=== PATIENT | female | born 1980 | race American Indian/Alaskan Native ===

== ENCOUNTER 2017-03-19 22:48 | Emergency (ER) | payer OTHER ==
[2017-03-19 23:30] LABS: Basophils % (Auto) 0.3 % (0.0-1.8); Eosinophils # (Auto) 0.1 K/mm3 (0.0-0.4); Eosinophils % (Auto) 0.9 % (0.0-4.3); Hematocrit 41.6 % (30.3-42.9); Hemoglobin 14.2 gm/dl (10.1-14.3); Lymphocytes # (Auto) 3.6 K/mm3 (1.2-5.4); Lymphocytes % (Auto) 37.5 % (13.4-35.0); Mean Corpuscular HGB Conc 34 % (30-34); Mean Corpuscular Hemoglobin 30 pg (28-32); Mean Corpuscular Volume 88 fl (79-97); Monocytes % (Auto) 10.3 % (0.0-7.3); Platelet Count 347 K/mm3 (140-440); Red Blood Count 4.74 M/mm3 (3.65-5.03)
--- NOTE | 2017-03-19 23:42 | XRay Report ---
FINAL REPORT PROCEDURE: XR CHEST ROUTINE 2V TECHNIQUE: PA and lateral chest radiographs were obtained. CPT 32575 HISTORY: Shortness of breath COMPARISON: No prior studies are available for comparison. FINDINGS: Heart: Normal. Mediastinum/Vessels: Normal. Lungs/Pleural space: Normal. Bony thorax: No acute osseous abnormality. Other: IMPRESSION: Normal examination.
[2017-03-19 23:48] LABS: BUN/Creatinine Ratio 16; Blood Urea Nitrogen 8 mg/dL (7-17); Hemolysis Index 6
[2017-03-20] MEDS ORDERED: NACL 0.9% 1000 ML 1,000 ML IV ONE (06:41)
--- NOTE | 2017-03-20 06:53 | Emergency Department Report ---
HPI - General Chief Complaint: Dyspnea/Respdistress Time Seen by Provider: 03/20/17 06:17 - HPI HPI: This is a 36 year-old female presents to the emergency department with complaint of a one-week history of some intermittent chest discomfort. She denies any shortness of breath, nausea, vomiting or fever. She does complain of some increased fatigue over this time. She did not take anything for her symptoms from presentation. She has a past medical history of diabetes on both pills and insulin, hypertension. She says that there is some family history and her father of an heart attack in his 50s. No recent travel or sick contacts at home. She has a primary care physician, Dr. Merlos, but has not seen them regarding her symptoms. ED Past Medical Hx - Past Medical History Hx Hypertension: Yes Hx Diabetes: Yes - Surgical History Past Surgical History?: No - Social History Smoking Status: Never Smoker Substance Use Type: None - Medications Home Medications: Home Medications Medication Instructions Recorded Confirmed Last Taken Type ALBUTEROL Inhaler [ProAir HFA 2 puff IH QID PRN #1 inhalation 03/20/17 Unknown Rx Inhaler] Cetirizine HCl [ZyrTEC] 10 mg PO QDAY #10 capsule 03/20/17 Unknown Rx ED Review of Systems ROS: Stated complaint: COUGH WITH CHEST PAIN Other details as noted in HPI Comment: All other systems reviewed and negative Constitutional: denies: chills, fever Eyes: denies: eye pain, eye discharge, vision change ENT: throat pain. denies: ear pain Respiratory: denies: cough, shortness of breath, wheezing Cardiovascular: chest pain. denies: palpitations Gastrointestinal: denies: abdominal pain, nausea, diarrhea Genitourinary: denies: urgency, dysuria, discharge Musculoskeletal: denies: back pain, joint swelling, arthralgia Skin: denies: rash, lesions Neurological: denies: headache, weakness, paresthesias Physical Exam - Physical Exam Vital Signs: Vital Signs 03/19/17 03/20/17 03/20/17 22:59 01:56 02:00 Temperature 98.7 F Pulse Rate 114 H 109 H 108 H Respiratory 16 12 26 H Rate Blood Pressure 154/93 Blood Pressure [Left] O2 Sat by Pulse 98 97 Oximetry 03/20/17 03/20/17 03/20/17 02:07 02:16 02:30 Temperature 98.5 F Pulse Rate 106 H 100 H 101 H Respiratory 20 41 H 40 H Rate Blood Pressure 165/100 165/100 Blood Pressure 165/100 [Left] O2 Sat by Pulse 97 96 96 Oximetry 03/20/17 03/20/17 03/20/17 02:46 03:00 03:16 Temperature Pulse Rate 107 H 103 H 104 H Respiratory 35 H 36 H 36 H Rate Blood Pressure 165/100 165/100 162/92 Blood Pressure [Left] O2 Sat by Pulse 97 96 96 Oximetry 03/20/17 03/20/17 03/20/17 03:30 03:46 04:00 Temperature Pulse Rate 106 H 111 H 106 H Respiratory 39 H 35 H 37 H Rate Blood Pressure 162/92 162/92 162/92 Blood Pressure [Left] O2 Sat by Pulse 96 97 95 Oximetry 03/20/17 03/20/17 03/20/17 04:16 04:44 04:46 Temperature Pulse Rate 105 H 112 H 112 H Respiratory 35 H 19 26 H Rate Blood Pressure 143/89 162/92 Blood Pressure [Left] O2 Sat by Pulse 97 98 99 Oximetry 03/20/17 03/20/17 03/20/17 05:00 05:16 05:30 Temperature Pulse Rate 113 H 109 H 110 H Respiratory 35 H 18 37 H Rate Blood Pressure 113/83 113/83 113/83 Blood Pressure [Left] O2 Sat by Pulse 99 97 98 Oximetry 03/20/17 03/20/17 03/20/17 05:46 06:00 06:16 Temperature Pulse Rate 108 H 103 H 103 H Respiratory 36 H 36 H 30 H Rate Blood Pressure 113/83 120/81 120/81 Blood Pressure [Left] O2 Sat by Pulse 98 97 96 Oximetry 03/20/17 06:30 Temperature Pulse Rate 101 H Respiratory 33 H Rate Blood Pressure 120/81 Blood Pressure [Left] O2 Sat by Pulse 95 Oximetry Physical Exam: GENERAL: The patient is well-developed well-nourished. HENT: Normocephalic. Atraumatic. Patient has moist mucous membranes. Oropharynx is clear without tonsillar hypertrophy, erythema or exudates. EYES: Extraocular motions are intact. Pupils equal reactive to light bilaterally. NECK: Supple. Skin is warm and dry. CHEST/LUNGS: Clear to auscultation. There is no respiratory distress noted. HEART/CARDIOVASCULAR: Regular. There is mild tachycardia. There is no murmur. ABDOMEN: Abdomen is soft, nontender. Patient has normal bowel sounds. Morbidly obese habitus. SKIN: Skin is warm and dry. NEURO: The patient is awake, alert, and oriented. The patient is cooperative. The patient has no focal neurologic deficits. The patient has normal speech. MUSCULOSKELETAL: There is no tenderness or deformity. There is no limitation range of motion. There is no evidence of acute injury. ED Course Vital Signs 03/19/17 03/20/17 03/20/17 22:59 01:56 02:00 Temperature 98.7 F Pulse Rate 114 H 109 H 108 H Respiratory 16 12 26 H Rate Blood Pressure 154/93 Blood Pressure [Left] O2 Sat by Pulse 98 97 Oximetry 03/20/17 03/20/17 03/20/17 02:07 02:16 02:30 Temperature 98.5 F Pulse Rate 106 H 100 H 101 H Respiratory 20 41 H 40 H Rate Blood Pressure 165/100 165/100 Blood Pressure 165/100 [Left] O2 Sat by Pulse 97 96 96 Oximetry 03/20/17 03/20/17 03/20/17 02:46 03:00 03:16 Temperature Pulse Rate 107 H 103 H 104 H Respiratory 35 H 36 H 36 H Rate Blood Pressure 165/100 165/100 162/92 Blood Pressure [Left] O2 Sat by Pulse 97 96 96 Oximetry 03/20/17 03/20/17 03/20/17 03:30 03:46 04:00 Temperature Pulse Rate 106 H 111 H 106 H Respiratory 39 H 35 H 37 H Rate Blood Pressure 162/92 162/92 162/92 Blood Pressure [Left] O2 Sat by Pulse 96 97 95 Oximetry 03/20/17 03/20/17 03/20/17 04:16 04:44 04:46 Temperature Pulse Rate 105 H 112 H 112 H Respiratory 35 H 19 26 H Rate Blood Pressure 143/89 162/92 Blood Pressure [Left] O2 Sat by Pulse 97 98 99 Oximetry 03/20/17 03/20/17 03/20/17 05:00 05:16 05:30 Temperature Pulse Rate 113 H 109 H 110 H Respiratory 35 H 18 37 H Rate Blood Pressure 113/83 113/83 113/83 Blood Pressure [Left] O2 Sat by Pulse 99 97 98 Oximetry 03/20/17 03/20/17 03/20/17 05:46 06:00 06:16 Temperature Pulse Rate 108 H 103 H 103 H Respiratory 36 H 36 H 30 H Rate Blood Pressure 113/83 120/81 120/81 Blood Pressure [Left] O2 Sat by Pulse 98 97 96 Oximetry 03/20/17 06:30 Temperature Pulse Rate 101 H Respiratory 33 H Rate Blood Pressure 120/81 Blood Pressure [Left] O2 Sat by Pulse 95 Oximetry - Consultations Consultation #1: 03/20/17 10:30 HEART Pathway for Early Discharge in Acute Chest Pain from [employer] on 2017 All calculations should be rechecked by clinician prior to use RESULT SUMMARY: 2 points HEART Pathway Score Low risk 0.91.7% 30-day MACE Repeat troponin at 3 hours and if negative, discharge home with outpatient follow-up. INPUTS: History > 0 = Slightly suspicious EKG > 0 = Normal Age > 0 = <45 Risk factors > 2 = 3 risk factors or history of atherosclerotic disease Initial troponin > 0 = normal limit ED Medical Decision Making - Lab Data Result diagrams: 03/19/17 23:08 03/19/17 23:08 - EKG Data -: EKG Interpreted by Me EKG shows normal: sinus rhythm, axis, intervals, QRS complexes, ST-T waves Rate: tachycardia (111 bpm) - EKG Data When compared to previous EKG there are: previous EKG unavailable Interpretation: normal EKG (with mild tachycardia) - Radiology Data Radiology results: image reviewed interpreted by me: Chest x-ray does not show any acute process. There are no pleural effusions, obvious pneumonia and there is no pneumothorax. - Medical Decision Making The patient presents with a one-week history of intermittent chest pain as well as some concerns for some sinus drainage. Physical exam she has normal sounding heart and lungs. EKG does not show any signs of ST elevation LA or arrhythmia. Labs showed negative troponins 2 and a negative d-dimer. She did have some hyperglycemia but it was down to 240 without any medications given. She was given some IV fluid and I suspect her blood sugar will be closer to 200 or below and she has both oral and subcutaneous medications to take for her diabetes. There is no significantly elevated anion gap to show concern for diabetic ketoacidosis. The patient does have a few risk factors for coronary artery disease including hypertension, diabetes and a father who had a heart attack at 55. However she is still very low on the Heart score criteria and has a RHINA score of 2 if her pain is considered angina and 1 if not. Patient does not have any current chest discomfort. Vital signs were stable throughout her ED course and her tachycardia improved prior to discharge. She appears safe for discharge home at this time. She was given referrals for cardiology and already has a primary care for follow-up. She will return to the ER with any worsening of her symptoms or any acute distress. - Differential Diagnosis LA, PE, costochondritis, pneumonia, CHF, DKA Critical Care Time: No Critical care attestation.: If time is entered above; I have spent that time in minutes in the direct care of this critically ill patient, excluding procedure time. ED Disposition Clinical Impression: Intermittent chest pain, Hyperglycemia Disposition: TO HOME OR SELFCARE Is pt being admited?: No Condition: Stable Instructions: Chest Pain (ED), Diabetic Hyperglycemia (ED) Additional Instructions: Please follow-up with your primary care physician in the next few days. I have given you a referral for a local python architect, Dr. Snell, to follow-up regarding your intermittent chest pains. Return to the emergency Department with any worsening of your symptoms or any acute distress. Please try and stay away from foods that are high in carbohydrates, starches and sugars to help with your blood sugar. Keep a blood sugar log. Prescriptions: ALBUTEROL Inhaler [ProAir HFA Inhaler] 2 puff IH QID PRN #1 inhalation PRN Reason: Shortness Of Breath Cetirizine HCl [ZyrTEC] 10 mg PO QDAY #10 capsule Referrals: RONIT SNELL MD [Staff Physician] - 3-5 Days Forms: Work/School Release Form(ED) Time of Disposition: 07:48
[2017-03-20 10:46] VITALS: BP 132/84
== END 2017-03-20 09:24 | disposition home or self-care (01) ==
LOC: ED 22:48
DX: E11.65 Type 2 diabetes mellitus with hyperglycemia (principal); I10 Essential (primary) hypertension
CPT/HCPCS: 36415; 71046; 80048; 82962; 84484; 85025; 85379; 93005; 93010; 96360; 99284; J7030

== ENCOUNTER 2017-04-22 19:03 | Emergency (ER) | payer SELFPAY ==
[2017-04-22] MEDS ORDERED: TYLENOL ONE (19:21)
[2017-04-22] MEDS ORDERED: NACL 0.9% 500 ML 500 ML IV ONE (19:31)
[2017-04-22] MEDS ORDERED: TYLENOL PO ONE (19:32)
[2017-04-22 19:54] LABS: Basophils % (Auto) 0.2 % (0.0-1.8); Eosinophils % (Auto) 0.2 % (0.0-4.3); Hematocrit 41.9 % (30.3-42.9); Lymphocytes # (Auto) 1.3 K/mm3 (1.2-5.4); Lymphocytes % (Auto) 11.1 % (13.4-35.0); Mean Corpuscular HGB Conc 33 % (30-34); Mean Corpuscular Hemoglobin 29 pg (28-32); Mean Corpuscular Volume 88 fl (79-97); Monocytes % (Auto) 8.5 % (0.0-7.3); Platelet Count 257 K/mm3 (140-440); Red Blood Count 4.78 M/mm3 (3.65-5.03); Red Cell Distribution Width 13.3 % (13.2-15.2)
[2017-04-22 20:04] VITALS: BP 126/67
[2017-04-22 20:04] LABS: INR 0.98 (0.87-1.13)
[2017-04-22 20:06] LABS: Alanine Aminotransferase 23 units/L (7-56); Albumin 3.4 g/dL (3.9-5); BUN/Creatinine Ratio 13; Blood Urea Nitrogen 9 mg/dL (7-17); Calcium 8.4 mg/dL (8.4-10.2); Hemolysis Index 2
[2017-04-22] MEDS ORDERED: NACL 0.9% 1000 ML 1,000 ML IV ONE ×2 (20:46→22:03)
[2017-04-22] MEDS ORDERED: REGLAN IV ONE (20:46)
[2017-04-22] MEDS ORDERED: TORADOL IV ONE (20:47)
[2017-04-22] MEDS ORDERED: PEPCID IV ONE (20:47)
[2017-04-22] MEDS ORDERED: LIDOCAINE VISCOUS 2% PO ONE (20:47)
--- NOTE | 2017-04-22 21:51 | XRay Report ---
FINAL REPORT PROCEDURE: XR CHEST 1V AP TECHNIQUE: Chest radiograph anteroposterior view. CPT 53703 HISTORY: possible Sepsis COMPARISON: 03/19/2017 FINDINGS: Heart: Normal. Mediastinum/Vessels: Normal. Lungs/Pleural space: No infiltrate, effusion, or pneumothorax. Bony thorax: No acute osseous abnormality. Life support devices: None. IMPRESSION: No radiographic evidence of acute cardiopulmonary abnormality.
[2017-04-22] MEDS ORDERED: BENTYL PO ONE (22:00)
--- NOTE | 2017-04-22 22:05 | Emergency Department Report ---
ED General Adult HPI - General Chief complaint: Fever Stated complaint: COUGH/KEARNEY/DIARRHEA Time Seen by Provider: 04/22/17 20:45 Source: patient Mode of arrival: Ambulatory Limitations: No Limitations - History of Present Illness Initial comments: Patient is a 36-year-old female past medical history of asthma and seasonal allergies who presents with abdominal pain and fever has been going on for the last 2 days. Patient states that she's been having upper epigastric abdominal pain every time she vomits. She's been having nausea vomiting and diarrhea. Patient states pain is a 6 out of 10 it is a burning type of pain that does not radiate. Nothing makes the pain better or worse. Patient states that she is also had runny nose and body aches have been going on. She has not received her flu shot. Severity scale (0 -10): 7 - Related Data Previous Rx's Medication Instructions Recorded Last Taken Type ALBUTEROL Inhaler [ProAir HFA 2 puff IH QID PRN #1 inhalation 03/20/17 Unknown Rx Inhaler] Cetirizine HCl [ZyrTEC] 10 mg PO QDAY #10 capsule 03/20/17 Unknown Rx Acetaminophen 500 mg PO Q6H #30 tablet 04/23/17 Unknown Rx Ibuprofen [Motrin] 400 mg PO Q8H PRN #30 tablet 04/23/17 Unknown Rx Sulfamethoxazole/Trimethoprim 1 each PO BID #10 tablet 04/23/17 Unknown Rx [Bactrim DS TAB] Allergies Allergy/AdvReac Type Severity Reaction Status Date / Time No Known Allergies Allergy Verified 03/19/17 23:06 ED Review of Systems ROS: Stated complaint: COUGH/KEARNEY/DIARRHEA Other details as noted in HPI Constitutional: fever. denies: chills Eyes: denies: eye pain, eye discharge, vision change ENT: denies: ear pain, throat pain Respiratory: denies: cough, shortness of breath, wheezing Cardiovascular: denies: chest pain, palpitations Endocrine: no symptoms reported Gastrointestinal: abdominal pain, nausea, vomiting, diarrhea Genitourinary: denies: urgency, dysuria, discharge Musculoskeletal: myalgia. denies: back pain, joint swelling, arthralgia Skin: denies: rash, lesions Neurological: denies: headache, weakness, paresthesias Psychiatric: denies: anxiety, depression Hematological/Lymphatic: denies: easy bleeding, easy bruising ED Past Medical Hx - Past Medical History Hx Hypertension: Yes Hx Diabetes: Yes - Social History Smoking Status: Never Smoker Substance Use Type: None - Medications Home Medications: Home Medications Medication Instructions Recorded Confirmed Last Taken Type ALBUTEROL Inhaler [ProAir HFA 2 puff IH QID PRN #1 inhalation 03/20/17 Unknown Rx Inhaler] Cetirizine HCl [ZyrTEC] 10 mg PO QDAY #10 capsule 03/20/17 Unknown Rx Acetaminophen 500 mg PO Q6H #30 tablet 04/23/17 Unknown Rx Ibuprofen [Motrin] 400 mg PO Q8H PRN #30 tablet 04/23/17 Unknown Rx Sulfamethoxazole/Trimethoprim 1 each PO BID #10 tablet 04/23/17 Unknown Rx [Bactrim DS TAB] ED Physical Exam - General Limitations: No Limitations General appearance: alert, in no apparent distress - Head Head exam: Present: atraumatic, normocephalic - Eye Eye exam: Present: normal appearance - ENT ENT exam: Present: mucous membranes moist - Neck Neck exam: Present: normal inspection - Respiratory Respiratory exam: Present: normal lung sounds bilaterally. Absent: respiratory distress - Cardiovascular Cardiovascular Exam: Present: normal rhythm, tachycardia. Absent: systolic murmur, diastolic murmur, rubs, gallop - GI/Abdominal GI/Abdominal exam: Present: soft, normal bowel sounds - Extremities Exam Extremities exam: Present: normal inspection - Back Exam Back exam: Present: normal inspection - Neurological Exam Neurological exam: Present: alert, oriented X3 - Psychiatric Psychiatric exam: Present: normal affect, normal mood - Skin Skin exam: Present: warm, dry, intact, normal color. Absent: rash ED Course Vital Signs 04/22/17 04/22/17 04/22/17 19:22 19:33 19:55 Temperature 103.1 F H Pulse Rate 136 H Respiratory 26 H 26 H Rate Blood Pressure 146/77 126/67 Blood Pressure [Left] O2 Sat by Pulse 91 Oximetry 04/22/17 04/22/17 20:01 22:44 Temperature 103.2 F H 103.2 F H Pulse Rate 98 H 99 H Respiratory 19 Rate Blood Pressure Blood Pressure 127/67 [Left] O2 Sat by Pulse 99 Oximetry ED Medical Decision Making - Lab Data Result diagrams: 04/22/17 19:40 04/22/17 19:40 Lab Results 04/22/17 04/22/17 04/22/17 Range/Units 19:34 19:40 19:40 WBC 11.6 H (4.5-11.0) K/mm3 RBC 4.78 (3.65-5.03) M/mm3 Hgb 14.0 (10.1-14.3) gm/dl Hct 41.9 (30.3-42.9) % MCV 88 (79-97) fl MCH 29 (28-32) pg MCHC 33 (30-34) % RDW 13.3 (13.2-15.2) % Plt Count 257 (140-440) K/mm3 Lymph % (Auto) 11.1 L (13.4-35.0) % Rooks % (Auto) 8.5 H (0.0-7.3) % Eos % (Auto) 0.2 (0.0-4.3) % Baso % (Auto) 0.2 (0.0-1.8) % Lymph # 1.3 (1.2-5.4) K/mm3 Rooks # 1.0 H (0.0-0.8) K/mm3 Eos # 0.0 (0.0-0.4) K/mm3 Baso # 0.0 (0.0-0.1) K/mm3 Seg Neutrophils % 80.0 H (40.0-70.0) % Seg Neutrophils # 9.3 H (1.8-7.7) K/mm3 PT 13.5 (12.2-14.9) Sec. INR 0.98 (0.87-1.13) VBG pH (7.320-7.420) Sodium (137-145) mmol/L Potassium (3.6-5.0) mmol/L Chloride (98-107) mmol/L Carbon Dioxide (22-30) mmol/L Anion Gap mmol/L BUN (7-17) mg/dL Creatinine (0.7-1.2) mg/dL Estimated GFR ml/min BUN/Creatinine Ratio % Glucose (65-100) mg/dL POC Glucose 223 H (70-105) Lactic Acid (0.7-2.0) mmol/L Calcium (8.4-10.2) mg/dL Total Bilirubin (0.1-1.2) mg/dL AST (5-40) units/L ALT (7-56) units/L Alkaline Phosphatase (35-129) units/L Total Protein (6.3-8.2) g/dL Albumin (3.9-5) g/dL Albumin/Globulin Ratio % 04/22/17 04/22/17 04/22/17 Range/Units 19:40 19:40 19:40 WBC (4.5-11.0) K/mm3 RBC (3.65-5.03) M/mm3 Hgb (10.1-14.3) gm/dl Hct (30.3-42.9) % MCV (79-97) fl MCH (28-32) pg MCHC (30-34) % RDW (13.2-15.2) % Plt Count (140-440) K/mm3 Lymph % (Auto) (13.4-35.0) % Rooks % (Auto) (0.0-7.3) % Eos % (Auto) (0.0-4.3) % Baso % (Auto) (0.0-1.8) % Lymph # (1.2-5.4) K/mm3 Rooks # (0.0-0.8) K/mm3 Eos # (0.0-0.4) K/mm3 Baso # (0.0-0.1) K/mm3 Seg Neutrophils % (40.0-70.0) % Seg Neutrophils # (1.8-7.7) K/mm3 PT (12.2-14.9) Sec. INR (0.87-1.13) VBG pH 7.489 H (7.320-7.420) Sodium 128 L (137-145) mmol/L Potassium 3.6 (3.6-5.0) mmol/L Chloride 92.0 L (98-107) mmol/L Carbon Dioxide 20 L (22-30) mmol/L Anion Gap 20 mmol/L BUN 9 (7-17) mg/dL Creatinine 0.7 (0.7-1.2) mg/dL Estimated GFR > 60 ml/min BUN/Creatinine Ratio 13 % Glucose 242 H (65-100) mg/dL POC Glucose (70-105) Lactic Acid 1.80 (0.7-2.0) mmol/L Calcium 8.4 (8.4-10.2) mg/dL Total Bilirubin 0.90 (0.1-1.2) mg/dL AST 40 (5-40) units/L ALT 23 (7-56) units/L Alkaline Phosphatase 107 (35-129) units/L Total Protein 7.6 (6.3-8.2) g/dL Albumin 3.4 L (3.9-5) g/dL Albumin/Globulin Ratio 0.8 % - Radiology Data Radiology results: report reviewed, image reviewed Chest x-ray: Shows no acute cardiopulmonary disease Critical care attestation.: If time is entered above; I have spent that time in minutes in the direct care of this critically ill patient, excluding procedure time. ED Disposition Clinical Impression: Influenza UTI (urinary tract infection) Qualifiers: Urinary tract infection type: acute cystitis Hematuria presence: without hematuria Qualified Code(s): N30.00 - Acute cystitis without hematuria Fever Qualifiers: Fever type: unspecified Qualified Code(s): R50.9 - Fever, unspecified Disposition: DC- TO HOME OR SELFCARE Is pt being admited?: No Does the pt Need Aspirin: No Condition: Stable Instructions: Influenza (ED), Fever in Adults (ED) Prescriptions: Acetaminophen 500 mg PO Q6H #30 tablet Ibuprofen [Motrin] 400 mg PO Q8H PRN #30 tablet PRN Reason: Pain Sulfamethoxazole/Trimethoprim [Bactrim DS TAB] 1 each PO BID #10 tablet Referrals: BORA ONEIL MD [Staff Physician] - 3-5 Days
[2017-04-22 23:41] LABS: Bacteria,Urine 1+ /HPF (Negative); Bilirubin,Urine NEG (Negative); Blood,Urine NEG (Negative); Color,Urine Amber (Yellow); Mucus,Urine 3+ /HPF
[2017-04-23] MEDS ORDERED: BACTRIM DS PO ONE (00:16)
== END 2017-04-23 00:33 | disposition home or self-care (01) ==
LOC: ED 19:03
DX: J11.1 Influenza due to unidentified influenza virus with other respiratory manifestations (principal); N30.00 Acute cystitis without hematuria; R50.81 Fever presenting with conditions classified elsewhere; I10 Essential (primary) hypertension; E11.9 Type 2 diabetes mellitus without complications
CPT/HCPCS: 36415; 71045; 80053; 81001; 82140; 82805; 82962; 85025; 85610; 87040; 87086; 93005; 93010; 96361; 96374; 96375; 99284; J1885; J2765; J7030; J7040; 81025